=== PATIENT | male | born 1955 | race Caucasian/White ===

== ENCOUNTER 2021-03-08 09:09 | Emergency (ER) | payer OTHER ==
[~2021-03-08] VITALS: Ht 175.3 cm; Wt 102.1 kg
[2021-03-08] MEDS ORDERED: ECOTRIN81 MG PO (13:41)
== END 2021-03-08 13:44 | disposition home or self-care (01) ==
LOC: ER 09:09
DX: R07.89 Other chest pain (principal)